=== PATIENT | male | born 1990 | race Caucasian/White ===

== ENCOUNTER 2017-02-10 04:14 | Inpatient (IN) | payer SELFPAY ==
[2017-02-10 04:23] VITALS: O2SAT 100
[2017-02-10 04:43] LABS: AUTOMATED NEUTROPHIL # 20.9 TH/MM3 (1.8-7.7); BASOPHIL # 0.1 TH/MM3 (0-0.2); BASOPHIL % 0.5 % (0.0-2.0); EOSINOPHIL % 0.1 % (0.0-4.0); HEMATOCRIT 44.9 % (39.0-51.0); HEMOGLOBIN 15.8 GM/DL (13.0-17.0); LYMPH % 6.5 % (9.0-44.0); LYMPHOCYTE # 1.6 TH/MM3 (1.0-4.8); MEAN CELL VOLUME 95.7 FL (80.0-100.0); MEAN CORPUSCULAR HEMOGLOBIN 33.6 PG (27.0-34.0); MEAN CORPUSCULAR HGB CONC 35.1 % (32.0-36.0); MEAN PLATELET VOLUME 7.1 FL (7.0-11.0); MONO % 5.2 % (0.0-8.0); MONOCYTE # 1.2 TH/MM3 (0-0.9); NEUT % 87.7 % (16.0-70.0); PLATELET COUNT 245 TH/MM3 (150-450); RED CELL DISTRIBUTION WIDTH 12.8 % (11.6-17.2); WHITE BLOOD COUNT 23.8 TH/MM3 (4.0-11.0)
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
[2017-02-10 04:58] LABS: INTERNATIONAL NORMALIZED RATIO 1.1 RATIO; PROTHROMBIN TIME - PATIENT 10.7 SEC (9.8-11.6)
--- NOTE | 2017-02-10 04:58 | RADRPT ---
EXAM DATE/TIME: 02/10/2017 04:22 [facility] COMPARISON: No previous studies available for comparison. INDICATIONS : Trauma; fall. Laceration left parietal. RADIATION DOSE: 33.88 CTDIvol (mGy) MEDICAL HISTORY : None SURGICAL HISTORY : None. ENCOUNTER: Initial ACUITY: 1 day PAIN SCALE: Non-responsive LOCATION: cranial TECHNIQUE: Multiple contiguous axial images were obtained of the head. Using automated exposure control and adj ustment of the mA and/or kV according to patient size, radiation dose was kept as low as reasonably a chievable to obtain optimal diagnostic quality images. DICOM format image data is available electro nically for review and comparison. FINDINGS: Left frontal skull fracture is identified. The abnormality measures 3 cm in anterior to posterior dim ension. It is mildly comminuted and demonstrates approximately 6 mm depression. Minimal adjacent extr a-axial blood products are noted along with focal intracranial gas adjacent to the fracture. There is minimal mass effect on the left frontal lobe. No midline shift. Ventricles within normal krishnan its. No evidence of acute infarct. Mild opacification of the ethmoid sinuses. CONCLUSION: Acute depressed left frontal skull fracture with small adjacent extra-axial hemorrhage and mild mass effect but no midline shift. Focal intracranial gas is also noted in the region of the fracture. Nando Ludwig MD on February 10, 2017 at 4:52 Board Certified Radiologist. This report was verified electronically.
[2017-02-10] MEDS ORDERED: TETANUS/DIPHTHERIA TOXOID ADULT 0.5 ML VIAL IM ONE (05:00)
[2017-02-10] MEDS ORDERED: CLINDAMYCIN INJ 600 MG in SODIUM CHLORIDE 0.9% INJ 100 ML IV ONE (05:00)
--- NOTE | 2017-02-10 05:01 | RADRPT ---
EXAM DATE/TIME: 02/10/2017 04:22 [facility] COMPARISON: No previous studies available for comparison. INDICATIONS : Trauma; fall. RADIATION DOSE: 17.70 CTDIvol (mGy) MEDICAL HISTORY : None SURGICAL HISTORY : None. ENCOUNTER: Initial ACUITY: 1 day PAIN SCALE: Non-responsive LOCATION: neck TECHNIQUE: Volumetric scanning of the cervical spine was performed. Multiplanar reconstructions in the sagittal, coronal and oblique axial planes were performed. Using automated exposure control and adjustment o f the mA and/or kV according to patient size, radiation dose was kept as low as reasonably achievable to obtain optimal diagnostic quality images. DICOM format image data is available electronically f or review and comparison. FINDINGS: VERTEBRAE: Normal vertebral body height. ALIGNMENT: No evidence of subluxation. C2-C3: The bony spinal canal is normal in size. No evidence of disc bulge or herniation. The neural forami na are bilaterally patent. C3-C4: The bony spinal canal is normal in size. No evidence of disc bulge or herniation. The neural forami na are bilaterally patent. C4-C5: Minimal broad-based disc osteophyte complex. Central canal normal diameter. Neural foraminal diameter s within normal limits.. C5-C6: The bony spinal canal is normal in size. No evidence of disc bulge or herniation. The neural forami na are bilaterally patent. C6-C7: The bony spinal canal is normal in size. No evidence of disc bulge or herniation. The neural forami na are bilaterally patent. C7-T1: The bony spinal canal is normal in size. No evidence of disc bulge or herniation. The neural forami na are bilaterally patent. CONCLUSION: No evidence of fracture. Minimal degenerative findings. Nando Ludwig MD on February 10, 2017 at 4:57 Board Certified Radiologist. This report was verified electronically.
[2017-02-10 05:03] LABS: ALBUMIN 4.5 GM/DL (3.4-5.0); ALT (GPT) 30 U/L (12-78); AST (GOT) 24 U/L (15-37); BICARBONATE 26.4 MEQ/L (21.0-32.0); BLOOD UREA NITROGEN 10 MG/DL (7-18); CALCIUM 8.4 MG/DL (8.5-10.1); CHLORIDE 109 MEQ/L (98-107); CREATININE 0.94 MG/DL (0.60-1.30); GLOMERULAR FILTRATION RATE 99 ML/MIN (>89); GLUCOSE,RANDOM 113 MG/DL (74-106); SODIUM (NA) 142 MEQ/L (136-145)
[2017-02-10 05:05] LABS: ALKALINE PHOSPHATASE 78 U/L (45-117); TOTAL BILIRUBIN ADULT 0.4 MG/DL (0.2-1.0); TOTAL PROTEIN 7.8 GM/DL (6.4-8.2)
[2017-02-10] MEDS ORDERED: D5-1/2 NS + KCL 10 MEQ INJ 1,000 ML IV SCH (05:30)
[2017-02-10] MEDS ORDERED: CHLORHEXIDINE GLUCONATE 2 % 1 PACK (2 CLOTHS) TOP PRN (05:45)
[2017-02-10] MEDS ORDERED: MISCELLANEOUS NURSING INFORMATION XX SCH (05:45)
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
[2017-02-10] MEDS ORDERED: MORPHINE SULFATE 2 MG/ML INJ IV PUSH PRN ×2 (06:00→10:15)
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
[2017-02-10] MEDS ORDERED: THROMBIN (TOPICAL) 20,000 UNIT SPRAY KIT ONE (06:30)
[2017-02-10] MEDS ORDERED: GELFOAM SIZE 100 ONE (06:31)
[2017-02-10] MEDS ORDERED: LIDOCAINE 1%/EPINEPHrine 1:100,000 SOLN 50 ML VIAL ONE (06:31)
[2017-02-10] MEDS ORDERED: GENTAMICIN SULFATE 80 MG/2 ML VIAL ONE (06:31)
[2017-02-10] MEDS ORDERED: THROMBIN (TOPICAL) 5,000 UNIT VIAL ONE (06:33)
[2017-02-10] MEDS ORDERED: CLINDAMYCIN PHOS 600 MG/4 ML VIAL ONE (07:52)
[2017-02-10] MEDS ORDERED: SUGAMMADEX SODIUM 200 MG/2 ML VIAL IV PUSH ONE (08:49)
[2017-02-10] MEDS: FAMOTIDINE 20 MG/2 ML VIAL IV PUSH SCH ×2 (09:00→21:29)
[2017-02-10] MEDS: SODIUM CHLORIDE 0.9% FLUSH 10 ML FLUSH IV FLUSH SCH ×2 (09:00→21:29)
[2017-02-10] MEDS ORDERED: BACITRACIN TOP OINT 15 GM TUBE ONE (09:03)
--- NOTE | 2017-02-10 09:50 | HHI.PR ---
Immediate Post Op Note Procedure Date: Feb 10, 2017 Pre Op Diagnosis: Open depressed skull fracture, left, frontal Post Op Diagnosis: same Surgeon: Joon Arreguin Turbine Blade Assembler(s): Mr Sotomayor Procedure: Left frontal craniectomy and elevation of depressed skull fracture,repair with miniplates and placement of titanium mesh(4x3 cm) Closure of scalp laceration Findings: Depressed fracture, conminuted No dural laceration Complications: none Specimen(s) removed: bone Estimated blood loss: 50 cc Patient to: PACU Patient Condition: Good Implant/Devices: SEE IMPLANT LOG (if applicable) Date/Time of Procedure: SEE SURGICAL CARE RECORD Joon Arreguin MD Feb 10, 2017 09:50
[2017-02-10] MEDS ORDERED: *morphine SULFATE 8 MG/ML PERIprocedure ONLY ONE ×2 (09:51→10:03)
[2017-02-10] MEDS: SODIUM CHLOR 0.9% 1000 ML INJ 1,000 ML IV SCH ×2 (10:09→16:34)
[2017-02-10] MEDS ORDERED: *ONDANSETRON 4 MG VIAL PERIprocedural Use ONLY ONE (10:15)
[2017-02-10] MEDS: NS + KCL 20 MEQ INJ 1,000 ML IV SCH ×2 (10:15→21:30)
[2017-02-10] MEDS ORDERED: *HYDROmorphone PF 1 MG VIAL PERIprocedural Use ONLY ONE (10:24)
[2017-02-10] MEDS ORDERED: *PROMETHAZINE 25 MG/ML VIAL PERIprocedural use ONLY ONE (10:28)
[2017-02-10 10:49] LABS: HEMATOCRIT 35.2 % (39.0-51.0); HEMOGLOBIN 12.7 GM/DL (13.0-17.0); MEAN CELL VOLUME 94.8 FL (80.0-100.0); MEAN CORPUSCULAR HEMOGLOBIN 34.2 PG (27.0-34.0); MEAN PLATELET VOLUME 7.1 FL (7.0-11.0); PLATELET COUNT 228 TH/MM3 (150-450); RED BLOOD COUNT 3.71 MIL/MM3 (4.50-5.90); RED CELL DISTRIBUTION WIDTH 12.9 % (11.6-17.2); WHITE BLOOD COUNT 19.6 TH/MM3 (4.0-11.0)
[2017-02-10 10:50] LABS: MEAN CORPUSCULAR HGB CONC 36.1 % (32.0-36.0)
[2017-02-10 11:00] VITALS: BP 152/79; PULSE 55; PULSE 56; RESP 13; TEMP 97.6; O2SAT 97
[2017-02-10] MEDS ORDERED: LIDOCAINE HCL 1% PF 5 ML SYRINGE OTHER ONE (12:00)
[2017-02-10] MEDS ORDERED: ROCURONIUM INJ 50 MG/5 ML SYRINGE IV PUSH ONE (12:00)
[2017-02-10] MEDS ORDERED: ESMOLOL HCL 100 MG/10 ML VIAL IV ONE (12:00)
[2017-02-10] MEDS ORDERED: PROPOFOL 200 MG/20 ML AMP IV ONE (12:00)
[2017-02-10] MEDS ORDERED: ePHEDrine/NS 25 MG/5 ML SYRINGE IV ONE (12:00)
[2017-02-10] MEDS ORDERED: PHENYLEPH/NS 1000 MCG/10 ML SYR IV ONE (12:00)
[2017-02-10] MEDS ORDERED: ONDANSETRON HCL 4 MG/2 ML VIAL IV PUSH ONE (12:00)
[2017-02-10] MEDS ORDERED: LACTATED RINGER'S 1000 ML INJ 2,000 ML IV ONE (12:00)
[2017-02-10] MEDS ORDERED: VECURONIUM BROMIDE 20 MG VIAL IV ONE (12:00)
[2017-02-10] MEDS ORDERED: STERILE WATER FOR INJECTION 20 ML VIAL IV ONE (12:00)
[2017-02-10] MEDS ORDERED: HYDROmorphone HCL PF 2 MG/ML VIAL IV ONE (13:15)
[2017-02-10] MEDS: ONDANSETRON HCL 4 MG/2 ML VIAL IV PUSH PRN ×2 (13:17→21:30)
[2017-02-10] MEDS: HYDROmorphone HCL PF 2 MG/ML VIAL IV PRN ×2 (13:17→21:30)
[2017-02-10 15:00] VITALS: BP 156/82; PULSE 52; RESP 16; TEMP 97.6; O2SAT 99
[2017-02-10] MEDS ORDERED: PROMETHAZINE INJ 25 MG/ML VIAL IV-CENTRAL ONE (15:15)
[2017-02-10] MEDS: CLINDAMYCIN 600 MG/NS PREMIX 50 ML IV SCH ×2 (16:00→21:29)
--- NOTE | 2017-02-10 19:46 | MP ---
cc: JOON ARREGUIN DATE OF SURGERY: 02/10/2017. PREOPERATIVE DIAGNOSIS: Left frontal depressed skull fracture. POSTOPERATIVE DIAGNOSIS: Left frontal depressed skull fracture. OPERATION: Left frontal craniotomy / craniectomy with elevation of depressed skull fracture, reconstruction with comminuted fracture, placement of mini plates and placement of titanium mesh 3 x 4 cm, closure of scalp laceration. SURGEON: Joon Arreguin MD. HAT BRUSHER MACHINE: Mr. Sotomayor. ESTIMATED BLOOD LOSS: 50 cc. DESCRIPTION OF THE PROCEDURE IN DETAIL: The patient was taken to the operating room. He was placed under general anesthesia. An arterial line was also placed per anesthesiology. A Calixto catheter was also placed in the operating room. Once this was accomplished, the patient was placed in a horseshoe with the head turned towards the right side exposing the left area. Dressing was removed. The head was shaved. Areas of small lacerations were noted going through the thickness of the scalp. A small curvilinear frontal scalp flap was outlined. The scalp was infiltrated with 1% Xylocaine and 1:200,000 epinephrine. The scalp was then incised sharply and taken down to the periosteum. Minnie clips were applied to the scalp edges. The flap was reflected forward and secured with fish hooks. Once this was accomplished, this exposed the area of the fracture. The temporalis muscle was partially elevated and cut in order to further expose the fracture. Small fragments of bone were progressively removed utilizing a #4 Gary and then the fracture was elevated and left in position. The dura was inspected. No laceration of the dura was seen and there was no bulging of the dura itself. Once this was accomplished, small pieces of bone were reattached using mini plates after securing hemostasis with Surgicel and Gelfoam and bone wax. Once these were completed, a titanium mesh was cut and placed over the fracture site and secured with 4 mm screws. The area was then copiously irrigated with saline. No further bleeding was noted. The fish hooks were then released. The scalp flap was then reattached with 3-0 Vicryl for the galea and surgical aylin for the scalp proper. The previous lacerations were closed utilizing 3-0 Vicryl and surgical aylin as well. Sterile dressing was applied. The patient at the end of the procedure was extubated and doing well and went to the recovery room for further support and evaluation. At the time of arrival to the recovery room, the patient was alert and oriented and following commands and moving all extremities well. MD JEANNIE Stark/SAMANTHA /5:14 PM /7:32 PM
[2017-02-10 20:00] VITALS: BP 139/76; PULSE 65; PULSE 70; RESP 21; TEMP 98.2; O2SAT 96
[2017-02-10 22:00] VITALS: PULSE 72
[2017-02-11] VITALS (10 sets, daily range): BP systolic 117–148; BP diastolic 56–68; PULSE 57–84; RESP 13–18; TEMP 97.2–98.8; O2SAT 96–99
[2017-02-11] MEDS: CLINDAMYCIN 600 MG/NS PREMIX 50 ML IV SCH ×4 (02:06→20:50)
[2017-02-11] MEDS: HYDROmorphone HCL PF 2 MG/ML VIAL IV PRN ×6 (03:20→21:49)
[2017-02-11] MEDS: ONDANSETRON HCL 4 MG/2 ML VIAL IV PUSH PRN ×2 (03:21→09:52)
[2017-02-11] MEDS: CHLORHEXIDINE GLUCONATE 2 % 1 PACK (2 CLOTHS) TOP SCH (03:21)
[2017-02-11 04:40] LABS: AUTOMATED NEUTROPHIL # 8.5 TH/MM3 (1.8-7.7); BASOPHIL % 0.3 % (0.0-2.0); EOSINOPHIL # 0.1 TH/MM3 (0-0.4); EOSINOPHIL % 0.5 % (0.0-4.0); HEMATOCRIT 32.4 % (39.0-51.0); HEMOGLOBIN 11.5 GM/DL (13.0-17.0); LYMPH % 19.1 % (9.0-44.0); LYMPHOCYTE # 2.4 TH/MM3 (1.0-4.8); MEAN CELL VOLUME 96.4 FL (80.0-100.0); MEAN CORPUSCULAR HEMOGLOBIN 34.3 PG (27.0-34.0); MEAN CORPUSCULAR HGB CONC 35.6 % (32.0-36.0); MEAN PLATELET VOLUME 7.7 FL (7.0-11.0); MONO % 12.2 % (0.0-8.0); MONOCYTE # 1.5 TH/MM3 (0-0.9); NEUT % 67.9 % (16.0-70.0); PLATELET COUNT 155 TH/MM3 (150-450); RED BLOOD COUNT 3.36 MIL/MM3 (4.50-5.90); RED CELL DISTRIBUTION WIDTH 12.8 % (11.6-17.2); WHITE BLOOD COUNT 12.5 TH/MM3 (4.0-11.0)
[2017-02-11 04:54] LABS: BICARBONATE 24.7 MEQ/L (21.0-32.0); CALCIUM 8.1 MG/DL (8.5-10.1); CREATININE 0.66 MG/DL (0.60-1.30)
--- NOTE | 2017-02-11 06:06 | RADRPT ---
EXAM DATE/TIME: 02/11/2017 05:42 [facility] COMPARISON: CT BRAIN W/O CONTRAST, February 10, 2017, 4:22. INDICATIONS : Follow up skull fracture; post craniotomy. RADIATION DOSE: 56.35 CTDIvol (mGy) MEDICAL HISTORY : Non-responsive. SURGICAL HISTORY : Non-responsive. ENCOUNTER: Subsequent ACUITY: 1 day PAIN SCALE: Non-responsive LOCATION: cranial TECHNIQUE: Multiple contiguous axial images were obtained of the head. Using automated exposure control and adj ustment of the mA and/or kV according to patient size, radiation dose was kept as low as reasonably a chievable to obtain optimal diagnostic quality images. DICOM format image data is available electro nically for review and comparison. FINDINGS: Interim reduction and metallic mesh fixation of left frontotemporal depressed skull fracture. Alignme nt is normal. No intracranial hemorrhage demonstrated. No midline shift. No mass, mass effect or evid ence of an infarct. CONCLUSION: Repaired left skull fracture in normal alignment and no blood or other acute intracranial complicatio n. Mumtaz Dias MD on February 11, 2017 at 6:02 Board Certified Radiologist. This report was verified electronically.
[2017-02-11] MEDS: SODIUM CHLORIDE 0.9% FLUSH 10 ML FLUSH IV FLUSH SCH ×2 (08:38→20:51)
[2017-02-11] MEDS: FAMOTIDINE 20 MG/2 ML VIAL IV PUSH SCH (08:38)
[2017-02-11] MEDS: NS + KCL 20 MEQ INJ 1,000 ML IV SCH ×2 (08:53→12:50)
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
[2017-02-11] MEDS: FAMOTIDINE 20 MG TAB PO SCH ×2 (10:00→20:50)
[2017-02-11] MEDS: THIAMINE HCL 100 MG TAB PO SCH (10:40)
--- NOTE | 2017-02-11 10:53 | HHI.NSPN ---
History Interval History Underwent repair. Has been doing well. Complaining of nausea System Review Comments no change Exam Results Vital Signs Date Time Temp Pulse Resp B/P (MAP) Pulse Ox O2 Delivery O2 Flow Rate FiO2 02/11/17 06:00 73 02/11/17 04:00 98.2 18 134/61 (85) 97 02/10/17 20:00 Room Air 02/10/17 04:23 21 Intake and Output 02/11/17 02/11/17 02/12/17 08:00 16:00 00:00 Intake Total 50 ml Balance 50 ml Physical Examination Alert and awake Speech improved Moves all extremities Wound is clean Medical Decision Making Impression and Plan Doing well Nausea to be controlled P: Transfer to floor Total Minutes: 15 Joon Arreguin MD Feb 11, 2017 10:53
[2017-02-11] MEDS ORDERED: ACETAMINOPHEN 500 MG CPLT PO PRN (20:45)
[2017-02-11] MEDS: ACETAMINOPHEN/HYDROcodone 325 MG/7.5 MG TAB PO PRN (21:16)
[2017-02-12] VITALS: BP 129/60; PULSE 63; RESP 18; TEMP 98.6; O2SAT 97
[2017-02-12] MEDS: ACETAMINOPHEN/HYDROcodone 325 MG/7.5 MG TAB PO PRN ×5 (01:15→18:05)
[2017-02-12] MEDS: CLINDAMYCIN 600 MG/NS PREMIX 50 ML IV SCH ×2 (01:21→08:12)
[2017-02-12] MEDS: NS + KCL 20 MEQ INJ 1,000 ML IV SCH ×3 (01:24→22:15)
[2017-02-12] MEDS: CHLORHEXIDINE GLUCONATE 2 % 1 PACK (2 CLOTHS) TOP SCH (03:48)
[2017-02-12 04:00] VITALS: BP 128/70; PULSE 95; RESP 18; TEMP 99.1; O2SAT 97
[2017-02-12] MEDS: HYDROmorphone HCL PF 2 MG/ML VIAL IV PRN ×3 (06:36→14:45)
[2017-02-12] MEDS: FAMOTIDINE 20 MG TAB PO SCH ×2 (08:12→20:49)
[2017-02-12] MEDS: SODIUM CHLORIDE 0.9% FLUSH 10 ML FLUSH IV FLUSH SCH ×2 (08:13→20:55)
[2017-02-12] MEDS: SODIUM CHLORIDE 0.9% FLUSH 10 ML FLUSH IV FLUSH PRN (08:13)
[2017-02-12] MEDS: ONDANSETRON HCL 4 MG/2 ML VIAL IV PUSH PRN (08:13)
--- NOTE | 2017-02-12 08:23 | MB ---
cc: JEANINE ALDANA DATE OF CONSULTATION: 02/10/2017 CHIEF COMPLAINT Fall history. HISTORY OF PRESENT ILLNESS: This is a 26 year old male patient who was attending a republican. The patient reports that he was walking home when he fell striking his head. He denies any loss of consciousness but reports immediate problem with his speech. He was taken into his apartment and 911 called. He was transported to [facility] and was initially evaluated in the emergency room and neurosurgery consultation was placed. The patient presently complains of a headache, bleeding of the head. He denies any neck pain or any other type of injuries. PAST MEDICAL HISTORY: Unremarkable except for history of acid reflux. ALLERGIES PENICILLIN MEDICATIONS: Include; intermittent omeprazole. REVIEW OF SYSTEMS Unremarkable. GENERAL EXAMINATION: VITAL SIGNS: Blood pressure 148/68, pulse 98, respirations 12, pulse oximetry of 100. IN GENERAL: The patient appears to be a 26 year-old male, well-developed, well-nourished in mild to moderate distress with bleeding about the head with a bandage over the scalp, the bandage revealed a small laceration of the scalp in two areas, in the left frontal area with bleeding, palpation reveals indentation of the bone. NECK: The neck is supple with good range of motion. CHEST: The chest is symmetric. LUNGS: Clear. ABDOMEN: The abdomen is soft with no tenderness. EXTREMITIES: The extremities are clear. SKIN: The skin shows evidence of small contusions about the chest area on the right side. Small contusion of the left arm. Small abrasion contusion of the right eye. NEUROLOGICALLY: Neurologically the patient is alert and awake, he follows commands. He is oriented times three. He has a halting speech. Cranial nerves II through XII intact except for a mild right facial asymmetry. Motor exam is 5+/5, sensory intact to touch. Deep tendon reflexes are 2+. He has a sign of Babinski bilaterally. LABORATORY FINDINGS: The labs were reviewed, the CT scan of the head shows what appears to be a depressed frontal fracture on the left side with evidence of comminution and evidence of a small hemorrhage and intracranial air present. CT scan of the cervical spine shows no fracture. IMPRESSION: Overall impression is that of depressed frontal skull fracture, open. Dysphasia. The findings were discussed with the patient, his mother and his girlfriend. Surgery was recommended. Surgery was explained and the risks of the surgery were explained to include; worsening of aphasia, right sided weakness, numbness, infection and postoperative hemorrhage. PLAN: The patient is being admitted to the Intensive Care Unit to undergo surgery and observation. MD JEANNIE Stark/heather /6:15 AM /8:19 AM [email or web address]
[2017-02-12 08:28] VITALS: BP 134/97; PULSE 65; RESP 17; TEMP 97.5; O2SAT 98
[2017-02-12] MEDS: THIAMINE HCL 100 MG TAB PO SCH (09:00)
[2017-02-12 11:00] VITALS: BP 144/76; PULSE 75; RESP 17; TEMP 97.8; O2SAT 96
--- NOTE | 2017-02-12 15:50 | HHI.NSPN ---
(Rik Yates) History Chief Complaint: Slight headache. (Rik Yates) Interval History 02/10: This is a 26 year old male patient who was attending a democrat. The patient reports that he was walking home when he fell striking his head. He denies any loss of consciousness but reports immediate problem with his speech. He was taken into his apartment and 911 called. He was transported to [facility] and was initially evaluated in the emergency room and neurosurgery consultation was placed. The patient presently complains of a headache, bleeding of head. He denies any neck pain or any other type of injuries. 02/11: Underwent repair. Has been doing well. Complaining of nausea 02/12: The patient is awake and alert sitting in bed talking with his girlfriend and Nursing. He does report having a slight headache that improves after medication. He denies any dizziness or nausea. He stated that he did get up in the shower and wash the chest down but kept the head dry. He did state he had some difficulty getting the correct word out but 90% of the time he had no problem and he had no problem with understanding what was being said. The patient was transferred from [facility] to a regular med/surg floor yesterday since he was doing well. (Rik Yates) Exam Results 02/10/17 02/10/17 02/11/17 02/11/17 02/12/17 02/12/17 06:00 18:00 06:00 18:00 06:00 18:00 Intake Total 2500 ml 100 ml 150 ml 1100 ml 1000 ml Output Total 675 ml Balance 1825 ml 100 ml 150 ml 1100 ml 1000 ml Intake IV Total 100 ml 150 ml 1100 ml 1000 ml Other 2500 ml Output Urine Total 275 ml Emesis 350 ml Estimated Blood Loss 50 ml # Voids 1 2 4 3 # Bowel Movements 0 0 Vital Signs Date Time Temp Pulse Resp B/P (MAP) Pulse Ox O2 Delivery O2 Flow Rate FiO2 02/12/17 11:00 97.8 75 17 144/76 (98) 96 02/12/17 08:28 97.5 65 17 134/97 (109) 98 02/12/17 04:00 99.1 95 18 128/70 (89) 97 02/12/17 00:00 98.6 63 18 129/60 (83) 97 02/11/17 21:15 Room Air 02/11/17 20:00 98.8 63 18 135/68 (90) 97 02/11/17 16:00 97.2 82 17 120/64 (82) 99 02/11/17 12:00 97.9 84 18 148/67 (94) 97 02/11/17 10:00 74 02/11/17 08:00 98.4 68 13 121/62 (81) 96 02/11/17 08:00 68 02/11/17 07:00 99 Room Air 02/11/17 06:00 73 02/11/17 04:00 98.2 60 18 134/61 (85) 97 02/11/17 04:00 73 02/11/17 02:00 57 02/11/17 00:00 59 02/11/17 00:00 98.0 59 14 117/56 (76) 96 02/10/17 22:00 72 02/10/17 20:00 98.2 70 21 139/76 (97) 96 02/10/17 20:00 65 02/10/17 20:00 Room Air 02/10/17 15:00 97.6 52 16 156/82 (106) 99 02/10/17 15:00 52 02/10/17 11:00 56 17 160/77 (104) 94 Room Air 02/10/17 11:00 99 Room Air 02/10/17 11:00 56 02/10/17 11:00 97.6 55 13 152/79 (103) 97 02/10/17 10:45 52 17 148/66 (93) 94 Room Air 02/10/17 10:30 71 18 149/73 (98) 96 Room Air 02/10/17 10:15 91 26 148/80 (102) 94 Room Air 02/10/17 10:00 101 18 154/83 (106) 96 Room Air 02/10/17 09:45 100 20 153/94 (113) 97 Room Air 02/10/17 09:29 98.2 113 20 153/86 (108) 98 Room Air 02/10/17 04:23 100 21 (Rik Yates) Physical Examination GENERAL: Awake & alert sitting in bed talking, affect essentially normal, no apparent distress. HEENT: Well-approximated left frontal surgical incision & scalp wound w/intact aylin, no evident drainage, erythema or streaking. MUSCULOSKELETAL: CHAPMAN w/o difficulty, extremities NTTP, no evident clubbing or deformity. NEUROLOGICAL: AAOx3. Speech clear & appropriate. Follows simple commands w/o difficulty. CN II-XII grossly intact. Sensation intact to light touch to all extremities. Motor strength is 5/5 to all major flexion & extension muscle groups. (Rik Yates) Lab, Micro, Other Results Recent Impressions Head CT 02/11/17 0600 Signed Impressions: Service Date/Time: Saturday, February 11, 2017 05:42 - CONCLUSION: Repaired left skull fracture in normal alignment and no blood or other acute intracranial complication. Mumtaz Dias MD Head CT 02/10/17 0000 Signed Impressions: Service Date/Time: Friday, February 10, 2017 04:22 - CONCLUSION: Acute depressed left frontal skull fracture with small adjacent extra-axial hemorrhage and mild mass effect but no midline shift. Focal intracranial gas is also noted in the region of the fracture. Nando Ludwig MD Cervical Spine CT 02/10/17 0000 Signed Impressions: Service Date/Time: Friday, February 10, 2017 04:22 - CONCLUSION: No evidence of fracture. Minimal degenerative findings. Nando Ludwig MD Laboratory Tests Test 02/10/17 04:17 02/10/17 08:25 02/10/17 10:38 02/10/17 12:00 White Blood Count 23.8 TH/MM3 19.6 TH/MM3 Red Blood Count 4.70 MIL/MM3 3.71 MIL/MM3 Hemoglobin 15.8 GM/DL 12.7 GM/DL Bedside Hemoglobin 15.0 G/DL Hematocrit 44.9 % 35.2 % Bedside Hematocrit 44.0 % Mean Corpuscular Volume 95.7 FL 94.8 FL Mean Corpuscular Hemoglobin 33.6 PG 34.2 PG Mean Corpuscular Hemoglobin Concent 35.1 % 36.1 % Red Cell Distribution Width 12.8 % 12.9 % Platelet Count 245 TH/MM3 228 TH/MM3 Mean Platelet Volume 7.1 FL 7.1 FL Neutrophils (%) (Auto) 87.7 % Lymphocytes (%) (Auto) 6.5 % Monocytes (%) (Auto) 5.2 % Eosinophils (%) (Auto) 0.1 % Basophils (%) (Auto) 0.5 % Neutrophils # (Auto) 20.9 TH/MM3 Lymphocytes # (Auto) 1.6 TH/MM3 Monocytes # (Auto) 1.2 TH/MM3 Eosinophils # (Auto) 0.0 TH/MM3 Basophils # (Auto) 0.1 TH/MM3 CBC Comment DIFF FINAL Differential Comment Prothrombin Time 10.7 SEC Prothromb Time International Ratio 1.1 RATIO Bedside Sodium 143 MMOL/L Blood Urea Nitrogen 10 MG/DL Creatinine 0.94 MG/DL Random Glucose 113 MG/DL Total Protein 7.8 GM/DL Albumin 4.5 GM/DL Calcium Level 8.4 MG/DL Alkaline Phosphatase 78 U/L Aspartate Amino Transf (AST/SGOT) 24 U/L Alanine Aminotransferase (ALT/SGPT) 30 U/L Total Bilirubin 0.4 MG/DL Sodium Level 142 MEQ/L Potassium Level 3.5 MEQ/L Chloride Level 109 MEQ/L Carbon Dioxide Level 26.4 MEQ/L Bedside Potassium 3.5 MMOL/L Bedside Chloride 103 MMOL/L Anion Gap 7 MEQ/L Bedside Blood Urea Nitrogen 9 MG/DL Bedside Creatinine 1.2 MG/DL Estimat Glomerular Filtration Rate 99 ML/MIN Bedside Glucose 119 MG/DL Ethyl Alcohol Level 155 MG/DL Blood Gas Puncture Site UNKNOWN Blood Gas Patient Temperature 98.6 Blood Gas HCO3 20 mmol/L Blood Gas Base Excess -3.4 mmol/L Blood Gas Oxygen Saturation 95 % Arterial Blood pH 7.46 Arterial Blood Partial Pressure CO2 29 mmHg Arterial Blood Partial Pressure O2 315 mmHg Arterial Blood Oxygen Content 17.4 Vol % Arterial Blood Carboxyhemoglobin 3.1 % Arterial Blood Methemoglobin 1.3 % Blood Gas Hemoglobin 12.5 G/DL Oxygen Delivery Device VENTILATOR Blood Gas Ventilator Setting Blood Gas Inspired Oxygen 55 % Nasal Screen MRSA (PCR) MRSA NOT DETECTED Test 02/11/17 03:46 White Blood Count 12.5 TH/MM3 Red Blood Count 3.36 MIL/MM3 Hemoglobin 11.5 GM/DL Hematocrit 32.4 % Mean Corpuscular Volume 96.4 FL Mean Corpuscular Hemoglobin 34.3 PG Mean Corpuscular Hemoglobin Concent 35.6 % Red Cell Distribution Width 12.8 % Platelet Count 155 TH/MM3 Mean Platelet Volume 7.7 FL Neutrophils (%) (Auto) 67.9 % Lymphocytes (%) (Auto) 19.1 % Monocytes (%) (Auto) 12.2 % Eosinophils (%) (Auto) 0.5 % Basophils (%) (Auto) 0.3 % Neutrophils # (Auto) 8.5 TH/MM3 Lymphocytes # (Auto) 2.4 TH/MM3 Monocytes # (Auto) 1.5 TH/MM3 Eosinophils # (Auto) 0.1 TH/MM3 Basophils # (Auto) 0.0 TH/MM3 CBC Comment DIFF FINAL Differential Comment Blood Urea Nitrogen 6 MG/DL Creatinine 0.66 MG/DL Random Glucose 81 MG/DL Calcium Level 8.1 MG/DL Sodium Level 139 MEQ/L Potassium Level 3.7 MEQ/L Chloride Level 106 MEQ/L Carbon Dioxide Level 24.7 MEQ/L Anion Gap 8 MEQ/L Estimat Glomerular Filtration Rate 148 ML/MIN (Rik Yates) Medical Decision Making Impression and Plan Impression: 1.) Depressed left frontal skull fracture, open 2.) Left frontal extra-axial haemorrhage 3.) Pneumocephalus 4.) Dysphasia The patient is doing well, he is neurologically intact w/improving expressive aphasia, surgical incision & wound healing w/o complication. Reviewed labs for today. Improving leukocytosis. Decrease in haemoglobin. POD #2 () s/p: Left frontal craniotomy / craniectomy with elevation of depressed skull fracture, reconstruction with comminuted fracture, placement of mini plates and placement of titanium mesh 3 x 4 cm, closure of scalp laceration. POSTOPERATIVE DIAGNOSIS: Left frontal depressed skull fracture. Plan: Primary management per Hospitalist. Neuro checks. Stat CT brain for any decrease in neuro status. Keep surgical incision clean & dry. (Rik Yates) Attending Statement The exam, history, and the medical decision-making described in the above note were completed with the assistance of the mid-level provider. I reviewed and agree with the findings presented. I attest that I had a [id number] encounter with the patient on the same day, and personally performed and documented my assessment and findings in the medical record. On my examination today the patient is out of bed in a chair. His family is with him. He is noted to have mild speech hesitancy. He indicates that this has improved significantly in the past couple of days. There is otherwise no focal neurologic deficit on examination. His incision site is clean and intact. He is stable from neurosurgical standpoint for discharge home on 02/13/2017 with outpatient follow-up in approximately 10 days for staple removal. Discussed with the patient and his family and all questions answered (Luis Enrique Gregory MD) Rik Yates Feb 12, 2017 15:50 Luis Enrique Gregory MD Feb 12, 2017 20:30
[2017-02-12 16:58] VITALS: BP 133/63; PULSE 62; RESP 16; TEMP 97.9; O2SAT 99
--- NOTE | 2017-02-12 18:36 | HHI.PR ---
Subjective Remarks 26M with traumatic head injury (frontal skull fracture) from a fall. He had a plate placed by neurosurgery and is doing well. Main complaint is nausea that seems like it might be related to [place] timing. He has had improvement with previously slurred speech and walks without any deficits. Objective Vital Signs Date Time Temp Pulse Resp B/P (MAP) Pulse Ox O2 Delivery O2 Flow Rate FiO2 02/12/17 16:58 97.9 62 16 133/63 (86) 99 02/12/17 11:00 97.8 75 17 144/76 (98) 96 02/12/17 08:28 97.5 65 17 134/97 (109) 98 02/12/17 04:00 99.1 95 18 128/70 (89) 97 02/12/17 00:00 98.6 63 18 129/60 (83) 97 02/11/17 21:15 Room Air 02/11/17 20:00 98.8 63 18 135/68 (90) 97 I/O 02/11/17 02/11/17 02/11/17 02/12/17 02/12/17 02/12/17 07:00 15:00 23:00 07:00 15:00 23:00 Intake Total 50 ml 150 ml 50 ml 1050 ml 1000 ml Balance 50 ml 150 ml 50 ml 1050 ml 1000 ml Intake IV Total 50 ml 150 ml 50 ml 1050 ml 1000 ml # Voids 2 7 # Bowel Movements 0 Result Diagram: 02/11/17 0346 02/11/17 0346 Imaging Last Impressions Head CT 02/11/17 0600 Signed Impressions: Service Date/Time: Saturday, February 11, 2017 05:42 - CONCLUSION: Repaired left skull fracture in normal alignment and no blood or other acute intracranial complication. Mumtaz Dias MD Cervical Spine CT 02/10/17 0000 Signed Impressions: Service Date/Time: Friday, February 10, 2017 04:22 - CONCLUSION: No evidence of fracture. Minimal degenerative findings. Nando Ludwig MD Objective Remarks GENERAL: Well-nourished, well-developed patient. SKIN: Warm and dry. HEAD: Normocephalic, large post-surgical laceration (20 cm curved) on left frontal/pentecostalism area, 1.5cm dehiscence of wound. EYES: No scleral icterus. No injection or drainage. NECK: Supple, trachea midline. No JVD or lymphadenopathy. CARDIOVASCULAR: Regular rate and rhythm without murmurs, gallops, or rubs. RESPIRATORY: Breath sounds equal bilaterally. No accessory muscle use. GASTROINTESTINAL: Abdomen soft, non-tender, nondistended. MUSCULOSKELETAL: No cyanosis, or edema. BACK: Nontender without obvious deformity. No CVA tenderness. EXTREMITIES: no edema Assessment and Plan Problem List: (1) Head injury ICD Codes: S09.90XA - Unspecified injury of head, initial encounter (2) Skull fracture ICD Codes: S02.91XA - Unspecified fracture of skull, initial encounter for closed fracture Assessment and Plan Head Injury w/ Skull Fracture - Repaired with plate by neurosurgery - Following up with neurosurgery in 2 weeks Slurring of Speech - related to injury from fall, but now mostly cleared up - PT evaluation prior to discharge Wound dehiscence - Two aylin did not adhere across wound resulting in a 1.5cm cosmetic defect - Will clean and close tomorrow prior to discharge to prevent wide scar DVT Prophylaxis - head trauma, so no anticoagulants - Low risk, ambulating Discharge Planning - Possible discharge tomorrow if cleared by neurosurgery Dawit Pickard MD Feb 12, 2017 18:36
[2017-02-12 20:00] VITALS: BP 140/70; PULSE 87; RESP 18; TEMP 97.5; O2SAT 98
[2017-02-12] MEDS: traMADol HCL 50 MG TAB PO PRN (20:49)
[2017-02-13] VITALS: BP 133/65; PULSE 78; RESP 18; TEMP 98; O2SAT 97
[2017-02-13] MEDS: SODIUM CHLORIDE 0.9% FLUSH 10 ML FLUSH IV FLUSH PRN ×2 (00:19→01:05)
[2017-02-13] MEDS: HYDROmorphone HCL PF 2 MG/ML VIAL IV PRN (00:19)
[2017-02-13] MEDS: ONDANSETRON HCL 4 MG/2 ML VIAL IV PUSH PRN (01:05)
[2017-02-13] MEDS: traMADol HCL 50 MG TAB PO PRN ×4 (01:19→08:53)
[2017-02-13] MEDS: CHLORHEXIDINE GLUCONATE 2 % 1 PACK (2 CLOTHS) TOP SCH (04:00)
[2017-02-13] MEDS: SODIUM CHLORIDE 0.9% FLUSH 10 ML FLUSH IV FLUSH SCH (07:31)
[2017-02-13] MEDS: FAMOTIDINE 20 MG TAB PO SCH (07:31)
[2017-02-13] MEDS: THIAMINE HCL 100 MG TAB PO SCH (07:31)
[2017-02-13 08:44] VITALS: BP 127/77; PULSE 65; RESP 16; TEMP 97.6; O2SAT 99
[2017-02-13] MEDS ORDERED: LIDOCAINE HCL 2% 20 ML VIAL INFIL ONE (09:00)
[2017-02-13] MEDS ORDERED: TRAM50 PO (11:44)
--- NOTE | 2017-03-06 16:12 | HHI.DS ---
Discharge Summary Admission Date Feb 10, 2017 at 05:24 Discharge Date: Feb 12, 2017 Admitting Diagnosis head trauma depressed skull fracture (1) Skull fracture ICD Code: S02.91XA - Unspecified fracture of skull, initial encounter for closed fracture Procedures cranial surgery with plating to stabilize fracture Brief History - From Admission 26 y/o man states he fell in parking lot. Injury looks like a strike injury, single vertical scar over left temporal region. Presents with bleeding from wound, slurred speech, difficulty finding words. He can't remember if he passed out. Hospital Course 26M who presented to the ER with a head injury and skull fracture after falling and hitting his head. He had slurring of the speech prior to surgery, but after plates were placed to support the depressed fracture fragment of his skull ,, his speech became clear and when I met him I did not notice any obvious deficit, though he said he felt he was speaking more slowly than usual. Two of the aylin pulled away from their intended targets on the surgical wound, causing small area of dehiscence in a cosmetically visible area on the left hoahaoism. I repaired the defect with a single suture. He was feeling fine, headaches much reduced, cleared by neurosurgery and appropriate for discharge home. Pt Condition on Discharge: Good Discharge Disposition: Discharge Home Discharge Time: <= 30 minutes Discharge Instructions DIET: Follow Instructions for: As Tolerated, No Restrictions Speech Therapy-Diet Recommends: Regular Activities you can perform: Regular-No Restrictions Dawit Pickard MD Mar 06, 2017 16:12
== END 2017-02-13 12:25 | disposition home or self-care (01) | DRG 25 ==
LOC: NEPE 04:14 → NEDA 05:24 → N03B 06:53 → N03A 11:31 → N05A 02-11 11:14
PROVIDERS: ADMIT Family Medicine; ATTEND Family Medicine
PROC: 0NS104Z Reposition Frontal Bone with Internal Fixation Device, Open Approach (ICD-10-PCS; principal; 2017-02-10 06:48)
PROC: 0HQ1XZZ Repair Face Skin, External Approach (ICD-10-PCS; 2017-02-13)
DX: S02.0XXB Fracture of vault of skull, initial encounter for open fracture (principal); G93.40 Encephalopathy, unspecified; T81.31XA Disruption of external operation (surgical) wound, not elsewhere classified, initial encounter; S06.309A Unspecified focal traumatic brain injury with loss of consciousness of unspecified duration, initial encounter; R47.02 Dysphasia; S80.211A Abrasion, right knee, initial encounter; S40.022A Contusion of left upper arm, initial encounter; S20.219A Contusion of unspecified front wall of thorax, initial encounter; W18.30XA Fall on same level, unspecified, initial encounter; Y92.481 Parking lot as the place of occurrence of the external cause; Z72.89 Other problems related to lifestyle; Y90.6 Blood alcohol level of 120-199 mg/100 ml; K21.9 Gastro-esophageal reflux disease without esophagitis
CPT/HCPCS: 70450; 72125; 80048; 80053; 80307; 82435; 82565; 82805; 82947; 84132; 84295; 84520; 85025; 85027; 85610; 86850; 86900; 86901; 86920; 87641; 90471; 99291; C1713; G0390; J1170; J1580; J2270; J2370; J2405; J2550; J3010; J3480; J7030; J7120